=== PATIENT | female | born 1955 | race African-American/Black ===

== ENCOUNTER → 2018-08-03 10:48 | Outpatient (CLI) | payer OTHER, SELFPAY ==
--- NOTE | 2018-08-03 10:53 | DI.CT.S_ITS ---
PROCEDURE: CT CHEST WO CON INDICATIONS: pulmonary nodule TECHNIQUE: Noncontrast 5 mm thick sections acquired from the pulmonary apices to the posterior costophrenic angles. 7 mm thick coronal and sagittal MIP reformats were then acquired. For radiation dose reduction, the following was used: automated exposure control, adjustment of mA and/or kV according to patient size. COMPARISON: [place], [place], [place] PET CT FUSION SKULL 2 THIGH, 04/29/2018, 14:51. FINDINGS: Image quality: Excellent. Lungs and pleura: No acute consolidation. Redemonstration of 9 mm subpleural right upper lobe only nodule since the prior study dated 04/29/18. Scattered scarring/atelectasis. Large eventration of the left hemidiaphragm. No pleural effusions or pneumothorax. Central and peripheral airways are patent and normal in caliber. Mediastinum: Heart size is normal. No pericardial effusion. No mediastinal adenopathy by size criteria. Thoracic aorta and central pulmonary arteries are normal in size. Esophagus is normal in caliber. No hiatal hernia. Bones and chest wall: No suspicious bony lesions. No vertebral body compression fractures. No axillary or supraclavicular adenopathy by size criteria. Thyroid gland negative. Abdomen: Some 5 mm hypodensity seen in the abdomen the liver, image 40 series 3 which is indeterminate and too small to characterize IMPRESSION: Overall, stable examination with no interval change of the previously described right upper lobe pulmonary nodule. Recommend continued surveillance with repeat noncontrast chest CT in April of 2019 to exclude indolent neoplastic process. Dictated by: Elbert Andrews M.D. on 08/03/2018 at 11:45 Approved by: Elbert Andrews M.D. on 08/03/2018 at 11:50
== END ==
PROVIDERS: PCP Nurse Practitioner Family
DX: R91.1 Solitary pulmonary nodule (principal)
CPT/HCPCS: 71250

== ENCOUNTER → 2019-05-24 12:19 | Outpatient (CLI) | payer OTHER, SELFPAY ==
--- NOTE | 2019-05-24 12:21 | DI.CT.S_ITS ---
PROCEDURE: CT CHEST WO CON INDICATIONS: Lung nodule TECHNIQUE: Noncontrast 2.0-2.5 mm thick sections acquired from the pulmonary apices to the posterior costophrenic angles. 7 mm thick axial MIP and 5 mm coronal and sagittal reformats were then acquired. A low radiation dose technique was utilized. COMPARISON: [facility], [place], [place] PET CT FUSION SKULL 2 THIGH, 04/29/2018, 14:51. [facility], CT, CT CHEST WO CON, 08/03/2018, 10:33. FINDINGS: Image quality: Diagnostic, given the low radiation dose technique. Lungs and pleura: Nodule with irregular margins in the posterior-lateral right upper lobe slightly increased in size compared to prior examinations measuring 1.2 cm in maximum diameter the current study (0.9 cm previously). No new lung nodules are identified. Elevation of the left hemidiaphragm is unchanged. Mediastinum: Heart size is normal. No pericardial effusion. No mediastinal adenopathy by size criteria. Thoracic aorta and central pulmonary arteries are normal in size. Esophagus is normal in caliber. No hiatal hernia. Bones and chest wall: No suspicious bony lesions. No vertebral body compression fractures. Spine degenerative disc disease and facet arthropathy. No axillary or supraclavicular adenopathy by size criteria. Thyroid gland is normal where visualized. Abdomen: Small hypoattenuating lesion in the anterior-superior subsegment of the right lobe liver is not optimally visualized in current study but does not appear significantly changed. Visualized upper abdomen solid organs and bowel loops localize appear normal in the absence of contrast. IMPRESSION: 1.2 cm right upper lobe nodule slightly increased in size compared to prior examinations. Biopsy is recommended for definitive characterization if clinically indicated. Fleischner Society criteria for SOLID lung nodule followup. Nodule size (mm)Low-risk patientHigh-risk patient<6 (single or multiple)No routine followup.Optional CT at 12 months. 6-8 (single or multiple)CT at 6-12 months, then optional CT at 18-24 mo.CT at 6-12 months, then CT at 18-24 months. >8 (single)CT at 3 months, PET-CT, or biopsy. Same as for low-risk pts. >8 (multiple)CT at 3-6 months, then optional CT at 18-24 mo.CT at 3-6 months, then CT at 18-24 months. Fleischner Society criteria for SUB-SOLID lung nodule followup. Solitary pure ground-glass nodules<6 mm (ground glass or part solid)No followup needed. 6 mm or larger (ground glass)CT at 6-12 months to confirm persistence, then CT every 2 years until 5 years.6 mm or larger (part solid)CT at 3-6 months to confirm persistence, then annual CT until 5 years if unchanged and solid component remains <6 mm. Multiple sub-solid nodules<6 mmCT at 3-6 months, then CT consider at 2 & 4 years for high risk patients. [address] at 3-6 months. Subsequent management based on most suspicious lesions. Recommendations do not apply to lung cancer screening, patients with immunosuppression, or patients with known primary cancer. Dictated by: Nessa Marcus MD, PhD on 05/24/2019 at 14:18 Approved by: Nessa Marcus MD, PhD on 05/24/2019 at 14:30
== END ==
PROVIDERS: PCP Nurse Practitioner Family
DX: R91.1 Solitary pulmonary nodule (principal)
CPT/HCPCS: 71250

== ENCOUNTER → 2019-08-19 12:04 | Outpatient (CLI) | payer OTHER, SELFPAY ==
--- NOTE | 2019-08-19 12:57 | DI.CT.S_ITS ---
PROCEDURE: CT CHEST ABD PEL W CON INDICATIONS: f/u lung nodule in non-smoker TECHNIQUE: After the administration of oral and intravenous contrast, 5 mm thick sections acquired from the lung apices to the symphysis. 5 mm coronal and sagittal reformats were performed, with additional 7 mm coronal MIP reformats through the lungs. For radiation dose reduction, the following was used: automated exposure control, adjustment of mA and/or kV according to patient size. COMPARISON: [facility], CT, CT CHEST WO CON, 08/03/2018, 10:33. [facility], [place], [place] PET CT FUSION SKULL 2 THIGH, 04/29/2018, 14:51. [facility], CT, CT CHEST WO CON, 05/24/2019, 12:18. FINDINGS: Image quality: Excellent. CHEST: Lungs and pleura: No acute consolidation. 1.1 x 1.2 cm posterior right upper lobe nodules again noted, no discernible interval change since 05/24/19. However slight interval increase in size since more remote studies dated 08/03/18 (1.1 x 1.0 cm) No pleural effusions or pneumothorax. Central and peripheral airways appear patent and normal in caliber. Mediastinum: Heart size is normal. No pericardial effusion. No mediastinal or hilar adenopathy by size criteria. Thoracic aorta and central pulmonary arteries are normal in size. Esophagus is normal in caliber. No hiatal hernia. Chest wall: No axillary or supraclavicular adenopathy by size criteria. Thyroid gland unremarkable. ABDOMEN: Solid organs: Multiple subcentimeter hepatic hypodensities are seen, too small to characterize accurately. Gallbladder negative. Biliary system is non dilated. Pancreas enhances normally. Spleen is normal in size and enhancement. No adrenal nodules. Kidneys demonstrate normal size and enhancement, without hydronephrosis. Subcentimeter poorly defined renal focal entities, statistically cysts, however technically too small to characterize accurately. Peritoneum and bowel: Bowel loops demonstrate normal wall thickness and caliber. No free fluid or air. Colonic diverticulosis is seen without evidence of acute complication. Nodes and vessels: No retroperitoneal or mesenteric adenopathy by size criteria. Aorta and inferior vena cava are normal in size. Miscellaneous: No ventral hernias. PELVIS: Genitourinary: Bladder wall thickness is normal. Bilateral fat containing inguinal hernias. Bones: No suspicious bony lesions. No vertebral body compression fractures. IMPRESSION: Overall, stable examination since 05/24/19. Redemonstrated right upper lobe pulmonary nodule which appears unchanged since the most recent study although slightly increased in size since more remote examinations. Technically, indolent neoplasm still cannot be excluded. No specific evidence of metastatic disease Dictated by: Elbert Andrews M.D. on 08/19/2019 at 16:03 Approved by: Elbert Andrews M.D. on 08/19/2019 at 16:17
== END ==
PROVIDERS: PCP Nurse Practitioner Family; Referring Provider Internal Medicine; Visit Provider Internal Medicine
DX: R91.1 Solitary pulmonary nodule (principal); K40.20 Bilateral inguinal hernia, without obstruction or gangrene, not specified as recurrent
CPT/HCPCS: 71260; 74177; Q9967

== ENCOUNTER 2019-09-09 07:05 | Outpatient (CLI) | payer MEDICARE, OTHER, SELFPAY ==
--- NOTE | 2019-09-09 07:09 | DI.CT.S_ITS ---
PROCEDURE: CT BIOPSY LUNG RT . INDICATIONS: biopsy of slowly growing right lung lesion TECHNIQUE: The indications, alternatives, benefits, risks, and possible complications of the procedure were communicated to the patient. Informed written consent from the patient was obtained and placed in the chart. Continuous EKG and hemodynamic monitoring was started by trained personnel. The was brought to the CT suite and pipe threader spiral CT imaging was performed with localization grid. Despite repositioning a multiple times and with variation in breathing instructions including deep inspiration, shallow inspiration and expiration the 1.2 cm nodule in the right upper lobe could not be accessed from a posterior approach with 22 intervening right scapula and right ribs. Neither a lateral or anterior approach couldn't be performed due to the distance from the skin surface the lesion which is greater than the length of available biopsy needles. COMPARISON: [facility], [place], [place] PET CT FUSION SKULL 2 THIGH, 04/29/2018, 14:51. [facility], CT, CT CHEST ABD PEL W CON, 08/19/2019, 12:59. [facility], CT, CT CHEST WO CON, 05/24/2019, 12:18. [facility], CT, CT CHEST WO CON, 08/03/2018, 10:33. IMPRESSION: Unsuccessful attempt at CT-guided biopsy of right upper lobe nodule. Dictated by: Nessa Marcus MD, PhD on 09/09/2019 at 12:26 Approved by: Nessa Marcus MD, PhD on 09/09/2019 at 12:31
[2019-09-09 07:26] LABS: Add Manual Diff / Slide Review NO; Basophils Absolute Auto 0 /uL (0-100); Basophils Percent Auto 0.9 % (0-2); Eosinophils Absolute Auto 0 /uL (0-450); Eosinophils Percent Auto 0.2 % (2-4); Hematocrit 37.7 % (36-46); Lymphocytes Absolute Auto 1200 /uL (1100-4500); Lymphocytes Percent Auto 32.6 % (25-40); Mean Corpuscular HGB Conc 31.8 % (30-36); Mean Corpuscular Volume 94.3 fL (80-100); Monocytes Absolute Auto 500 /uL (0-900); Monocytes Percent Auto 13.5 % (3-14); Neutrophils Absolute Auto 2000 /uL (1500-7000); Neutrophils Percent Auto 52.8 % (50-75); Platelet Count 177 X10^3/uL (150-400); Red Blood Cell Count 3.99 X10^6/uL (4.0-5.2); Red Cell Distribution Width 12.7 % (11.6-14.8); White Blood Cell Count 3.8 X10^3/uL (4.5-11.0)
[2019-09-09 07:32] LABS: Prothrombin Time 11.9 SECONDS (10.1-12.7)
[2019-09-09 07:43] VITALS: BP 119/74; PULSE 84; RESP 18; TEMP 36.6; O2SAT 99; BMI 39.1
[2019-09-09 08:35] VITALS: PULSE 82; RESP 14; O2SAT 100
[2019-09-09 08:44] VITALS: BP 150/71; PULSE 90; RESP 16; O2SAT 100
--- NOTE | 2019-09-09 09:04 | PC.NURSE ---
Unable to access rt lung nodule site for biopsy. Procedure cancelled.
--- NOTE | 2019-09-09 09:18 | SUR.PHASEII ---
Pt back from DI. Pt dressed and left unit in stable condition.
== END 2019-09-09 09:10 | disposition home or self-care (01) ==
LOC: OR 07:07
PROVIDERS: PCP Nurse Practitioner Family; Referring Provider Internal Medicine; Visit Provider Internal Medicine
PROC: BB24ZZZ Computerized Tomography (CT Scan) of Bilateral Lungs (ICD-10-PCS; CPT 32408; principal; 2019-09-09 08:30)
DX: R91.1 Solitary pulmonary nodule (principal)
CPT/HCPCS: 36415; 71250; 85025; 85610

== ENCOUNTER → 2019-10-26 10:10 | Outpatient (CLI) | payer MEDICARE, OTHER, SELFPAY ==
[2019-10-27 09:52] LABS: COVID19 Sendout Not Detected (Not Detect)
== END ==
PROVIDERS: PCP Nurse Practitioner Family; Visit Provider Physician Assistant
DX: Z11.59 Encounter for screening for other viral diseases (principal)
CPT/HCPCS: 87635

== ENCOUNTER → 2019-10-29 13:24 | Outpatient (CLI) | payer MEDICARE, OTHER, SELFPAY ==
--- NOTE | 2019-11-03 10:22 | PM.PFT.1 ---
Pulmonary Function Test Referral & Results Date Patient Seen: 10/29/19 Requesting provider: Zeus Narvaez Indication: Lung nodule Results: The spirometry demonstrates an FVC of 1.74 L which is 57% of predicted. The FEV1 was measured at 1.50 L which is 64% of predicted. The FEV1/FVC ratio was 86 which is 112% of predicted. Following the administration of bronchodilator there was no appreciable change. Lung volumes show an SVC of 1.65 L which is 57% of predicted. The diffusing capacity was measured at 17.03 which is 74% of predicted. No hemoglobin value was provided, so no correction for potential anemia could be made, if appropriate. The maximum voluntary ventilation was reduced Interpretation: This study demonstrates mild/moderate obstructive lung disease based on reduction FEV1, without evidence of benefit following bronchodilator There is also terh-wj-eatvaais restrictive lung disease based on reduction in SVC There is also a reduction in diffusing capacity suggesting disease at the capillary alveolar level
== END ==
PROVIDERS: PCP Family Medicine; Referring Provider Family Medicine; Visit Provider Internal Medicine
DX: R91.1 Solitary pulmonary nodule (principal)
CPT/HCPCS: 94060; 94726; 94729

== ENCOUNTER → 2020-02-05 12:39 | Outpatient (CLI) | payer MEDICARE, OTHER, SELFPAY ==
--- NOTE | 2020-02-05 12:42 | DI.MG.S_ITS ---
BILATERAL DIGITAL SCREENING MAMMOGRAM 3D/2D WITH CAD: 02/05/2020 CLINICAL: Routine screening. Comparison is made to exams dated: 01/19/2019 mammogram, 02/10/2017 mammogram, and 02/18/2016 mammogram - [facility]. The tissue of both breasts is predominantly fatty. Current study was also evaluated with a Computer Aided Detection (CAD) system. No significant masses, calcifications, or other findings are seen in either breast. There has been no significant interval change. IMPRESSION: NEGATIVE There is no mammographic evidence of malignancy. A 1 year screening mammogram is recommended. This exam was interpreted at Station ID: [id number]. NOTE: For mammograms, a report in lay terms will be sent to the patient. Approximately 15% of breast malignancies will not be visualized mammographically. In the management of a palpable breast mass, a negative mammogram must not discourage biopsy of a clinically suspicious lesion. Electronically Signed By: Marlon Reich acr/oleg:02/06/2020 19:02:19 copy to: ADE PEÑA letter sent: Normal Exam ACR BI-RADS Category 1: Negative 3341F
== END ==
PROVIDERS: PCP Internal Medicine; Referring Provider Internal Medicine; Visit Provider Internal Medicine
DX: Z12.31 Encounter for screening mammogram for malignant neoplasm of breast (principal)
CPT/HCPCS: 77063; 77067

== ENCOUNTER → 2020-05-08 12:56 | Outpatient (CLI) | payer MEDICARE, OTHER, SELFPAY ==
[2020-05-08 13:39] LABS: BUN Creatinine Ratio 21.6 (6-22); Blood Urea Nitrogen 19 mg/dL (7-17); Estimated Glomerular Filt Rate > 60.0 mL/min (>60)
== END ==
PROVIDERS: PCP Internal Medicine; Referring Provider Radiology Radiation Oncology; Visit Provider Radiology Radiation Oncology
DX: C34.11 Malignant neoplasm of upper lobe, right bronchus or lung (principal)
CPT/HCPCS: 36415; 82565; 84520

== ENCOUNTER → 2020-05-11 11:12 | Outpatient (CLI) | payer MEDICARE, OTHER, SELFPAY ==
--- NOTE | 2020-05-11 11:41 | DI.CT.S_ITS ---
PROCEDURE: CT CHEST W CON INDICATIONS: 3 month follow up lung cancer TECHNIQUE: After the administration of intravenous contrast, 5 mm thick sections acquired from the pulmonary apices to the posterior costophrenic angles. 1 mm axial lung, 5 mm thick coronal and sagittal reformats and 7 mm axial MIP were acquired. For radiation dose reduction, the following was used: automated exposure control, adjustment of mA and/or kV according to patient size. COMPARISON: [facility], [place], PET NECK TO MID THIGH, 11/11/2019, 15:17. [facility], CT, CT CHEST WO CON, 05/24/2019, 12:18. FINDINGS: Image quality: Excellent. Lungs and pleura: No acute air space opacities. 10 mm diameter right upper lobe pulmonary nodule is not significantly changed in size, or appearance. Compressive atelectasis at the left lung base is unchanged. Left hemidiaphragm is elevated. No pleural effusions or pneumothorax. Central and peripheral airways are patent and normal in caliber. Mediastinum: Heart size is normal. No pericardial effusion. No mediastinal or hilar adenopathy by size criteria. Thoracic aorta and central pulmonary arteries are normal in size. Esophagus is normal in caliber. No hiatal hernia. Bones and chest wall: No suspicious bony lesions. No vertebral body compression fractures. No axillary or supraclavicular adenopathy by size criteria. Thyroid gland is within normal limits . Abdomen: Visualized upper abdominal solid organs appear normal. Upper abdominal bowel loops are normal in caliber. IMPRESSION: No change in right upper lobe pulmonary nodule. Dictated by: Candido Castrejon M.D. on 05/11/2020 at 13:32 Approved by: Candido Castrejon M.D. on 05/11/2020 at 13:34
== END ==
PROVIDERS: PCP Internal Medicine; Referring Provider Radiology Radiation Oncology; Visit Provider Radiology Radiation Oncology
DX: C34.11 Malignant neoplasm of upper lobe, right bronchus or lung (principal)
CPT/HCPCS: 71260

== ENCOUNTER → 2020-08-01 11:39 | Outpatient (CLI) | payer MEDICARE, OTHER, SELFPAY ==
--- NOTE | 2020-08-01 11:43 | DI.RAD.S_ITS ---
PROCEDURE: XR CHEST 2V INDICATIONS: S/P SBRT for lung cancer, has shortness of breath/wheezing TECHNIQUE: 2 views of the chest were acquired. COMPARISON: [facility], CT, CT CHEST W CON, 05/11/2020, 11:21. [facility], [place], XR CHEST 1 VIEW, 11/04/2019, 14:27. FINDINGS: Surgical changes and devices: None. Lungs and pleura: There is a density in the right mid to upper lung field which has a parent suggesting some atelectasis versus scarring related to treatment of a right upper lobe nodule. Lungs are clear. No pleural effusions or pneumothorax. Chronic elevation of the left hemidiaphragm with mediastinal shift to the right. No acute airspace consolidation noted. Mediastinum: Mediastinal contours are normal. Heart size is normal. Bones and chest wall: No suspicious bony abnormalities. Soft tissues appear unremarkable. IMPRESSION: 1. Findings in the right mid to upper lung field most likely represent changes secondary to treatment of a pulmonary nodule. 2. Chronic elevation of left hemidiaphragm. 3. No evidence pneumonia. Dictated by: Francisco J Eubanks M.D. on 08/01/2020 at 12:10 Approved by: Francisco J Eubanks M.D. on 08/01/2020 at 12:13
== END ==
PROVIDERS: PCP Family Medicine; Referring Provider Internal Medicine; Visit Provider Internal Medicine
DX: C34.91 Malignant neoplasm of unspecified part of right bronchus or lung (principal); R06.02 Shortness of breath
CPT/HCPCS: 71046

== ENCOUNTER → 2020-10-28 11:04 | Outpatient (CLI) | payer MEDICARE, OTHER, SELFPAY ==
--- NOTE | 2020-10-28 | DI.MRI.S_ITS ---
PROCEDURE: MR SHOULDER RT WO CON INDICATIONS: Pain in right shoulder TECHNIQUE: Noncontrast oblique coronal T2 fast spin echo with fat saturation, oblique sagittal T1 spin echo and T2 fast spin echo with fat saturation, axial T1 spin echo and T2 fast spin echo with fat saturation through the shoulder. COMPARISON: [facility], [place], XR SHOULDER 2+ VIEWS RIGHT, 10/12/2020, 10:57. [facility], CR, XR SHOULDER 2+ VIEWS RIGHT, 10/17/2020, 15:06. FINDINGS: Image quality: Excellent. Rotator cuff: There is full-thickness tear of the supraspinatus tendon. There infraspinatus and subscapularis tendinosis. Sagittal images demonstrate mild supraspinatus muscle atrophy. Bones and bursae: No bone marrow contusions or fractures. Moderate acromioclavicular and joint degeneration. The acromion demonstrates conventional anatomy, without an os acromiale. There is small subacromial-subdeltoid bursal fluid. Small glenohumeral joint effusion. Capsule and soft tissues: There is degenerative tear/fraying of the anterior superior labrum. The long head of the biceps tendon demonstrates normal location and morphology. The rotator interval appears irregular. The coracohumeral ligament is normal in thickness. IMPRESSION: 1. Full-thickness tear of the supraspinatus tendon. There is mild supraspinatus muscle atrophy. 2. Infraspinatus and subscapularis tendinosis. 3. Moderate acromioclavicular and glenohumeral joint degeneration. 4. Degenerative anterior superior labral tear/fraying. 5. Irregular rotator interval. 6. Small subacromial/subdeltoid bursal fluid, likely related to small glenohumeral joint effusion and supraspinatus tendon tear. Dictated by: Sophie Saldana M.D. on 10/30/2020 at 12:54 Approved by: Sophie Saldana M.D. on 10/30/2020 at 18:07
== END ==
PROVIDERS: PCP Family Medicine; Referring Provider Orthopaedic Surgery; Visit Provider Orthopaedic Surgery
DX: C34.11 Malignant neoplasm of upper lobe, right bronchus or lung (principal); M25.511 Pain in right shoulder; M75.121 Complete rotator cuff tear or rupture of right shoulder, not specified as traumatic; M19.011 Primary osteoarthritis, right shoulder; R91.1 Solitary pulmonary nodule; R06.02 Shortness of breath
CPT/HCPCS: 36415; 73221; 80053; 85025

== ENCOUNTER → 2020-10-30 10:26 | Outpatient (CLI) | payer MEDICARE, OTHER, SELFPAY ==
--- NOTE | 2020-10-30 10:27 | DI.CT.S_ITS ---
PROCEDURE: CT CHEST W CON INDICATIONS: Follow-up lung cancer after SBRT TECHNIQUE: After the administration of intravenous contrast, 5 mm thick sections acquired from the pulmonary apices to the posterior costophrenic angles. 1 mm axial lung, 5 mm thick coronal and sagittal reformats and 7 mm axial MIP were acquired. For radiation dose reduction, the following was used: automated exposure control, adjustment of mA and/or kV according to patient size. COMPARISON: [facility], CT, CT CHEST W CON, 05/11/2020, 11:21. [facility], CT, CT CHEST WO CON, 05/24/2019, 12:18. FINDINGS: Image quality: Excellent. Lungs and pleura: No acute air space opacities. There is chronic asymmetric elevation of the left hemidiaphragm. 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 No pleural effusions or pneumothorax. Central and peripheral airways are patent and normal in caliber. Mediastinum: Heart size is normal. No pericardial effusion. No mediastinal or hilar adenopathy by size criteria. Thoracic aorta and central pulmonary arteries are normal in size. Esophagus is normal in caliber. No hiatal hernia. Bones and chest wall: No suspicious bony lesions. No vertebral body compression fractures. No axillary or supraclavicular adenopathy by size criteria. Thyroid gland appears normal where well seen . Abdomen: Visualized upper abdominal solid organs appear normal. Upper abdominal bowel loops are normal in caliber. IMPRESSION: Presumed radiation change right upper lobe, with a band of fibrosis in the expected radiation port for treatment of the small lateral right upper lobe lung nodule previously present. That in nodule is no longer seen as a discrete entity. No mediastinal or hilar adenopathy is developed. No distant metastatic disease is found. Dictated by: Valeriy Zelaya M.D. on 10/30/2020 at 15:38 Approved by: Valeriy Zelaya M.D. on 10/30/2020 at 15:56
== END ==
PROVIDERS: PCP Family Medicine; Referring Provider Internal Medicine; Visit Provider Internal Medicine
DX: C34.91 Malignant neoplasm of unspecified part of right bronchus or lung (principal); R06.02 Shortness of breath
CPT/HCPCS: 71260; Q9967

== ENCOUNTER → 2021-03-29 11:40 | Outpatient (CLI) | payer MEDICARE, OTHER, SELFPAY ==
--- NOTE | 2021-03-29 | DI.MG.S_ITS ---
BILATERAL DIGITAL SCREENING MAMMOGRAM 3D/2D WITH CAD: 03/29/2021 CLINICAL: Routine screening. Comparison is made to exams dated: 02/05/2020 mammogram - [facility], 01/19/2019 mammogram, and 02/10/2017 mammogram - [facility]. The tissue of both breasts is predominantly fatty. Current study was also evaluated with a Computer Aided Detection (CAD) system. No significant masses, calcifications, or other findings are seen in either breast. There has been no significant interval change. IMPRESSION: NEGATIVE There is no mammographic evidence of malignancy. A 1 year screening mammogram is recommended. This exam was interpreted at Station ID: [id number]. NOTE: For mammograms, a report in lay terms will be sent to the patient. Approximately 15% of breast malignancies will not be visualized mammographically. In the management of a palpable breast mass, a negative mammogram must not discourage biopsy of a clinically suspicious lesion. Electronically Signed By: Marlon Reich acr/penrad:03/29/2021 12:02:03 copy to: ADE PEÑA letter sent: Normal Exam ACR BI-RADS Category 1: Negative [id number]
== END ==
PROVIDERS: PCP Family Medicine; Referring Provider Family Medicine; Visit Provider Family Medicine
DX: Z12.31 Encounter for screening mammogram for malignant neoplasm of breast (principal)
CPT/HCPCS: 77063; 77067

== ENCOUNTER → 2021-04-23 10:14 | Outpatient (CLI) | payer MEDICARE, OTHER, SELFPAY ==
--- NOTE | 2021-04-23 | DI.CT.S_ITS ---
PROCEDURE: CT CHEST WO CON INDICATIONS: Malignant neoplasm of upper lobe, right bronchus TECHNIQUE: Noncontrast 5 mm thick sections acquired from the pulmonary apices to the posterior costophrenic angles. 1 mm lung window, 5 mm thick coronal and sagittal and 7 mm axial MIP reformats were then acquired. For radiation dose reduction, the following was used: automated exposure control, adjustment of mA and/or kV according to patient size. COMPARISON: [facility], CT, CT CHEST W CON, 10/30/2020, 10:34. [facility], CT, CT CHEST WO CON, 05/24/2019, 12:18. FINDINGS: Image quality: Excellent. Lungs and pleura: No acute air space opacities. Redemonstrated streaky and platelike densities in the peripheral aspect of the right upper lobe, most consistent with a sequelae of radiation therapy. A 7.6 mm nodular density is seen (5-43), which may reflect the previously demonstrated neoplastic pulmonary nodule. No pleural effusions or pneumothorax. Persistent elevation of the left diaphragm with adjacent atelectasis. Central and peripheral airways are patent and normal in caliber. Mediastinum: Heart size is normal. No pericardial effusion. No mediastinal adenopathy by size criteria. Thoracic aorta and central pulmonary arteries are normal in size. Esophagus is normal in caliber. No hiatal hernia. Bones and chest wall: No suspicious bony lesions. No vertebral body compression fractures. No axillary or supraclavicular adenopathy by size criteria. Thyroid gland appears homogeneous. Abdomen: Visualized upper abdominal solid organs and bowel loops appear normal in the absence of contrast. 1 cm hypoattenuating lesion in the right hepatic lobe. IMPRESSION: 1. No significant interval change of the patient's right upper lobe scarring. Dictated by: Mark Rosas M.D. on 04/23/2021 at 12:03 Approved by: Mark Rosas M.D. on 04/23/2021 at 12:13
== END ==
PROVIDERS: PCP Family Medicine; Referring Provider Radiology Radiation Oncology; Visit Provider Radiology Radiation Oncology
DX: C34.11 Malignant neoplasm of upper lobe, right bronchus or lung (principal)
CPT/HCPCS: 71250

== ENCOUNTER → 2022-04-19 12:07 | Outpatient (CLI) | payer MEDICARE, OTHER, SELFPAY ==
--- NOTE | 2022-04-19 | DI.CT.S_ITS ---
PROCEDURE: CT CHEST WO CON INDICATIONS: malignant neoplasm of unspecified part of lung TECHNIQUE: Noncontrast 5 mm thick sections acquired from the pulmonary apices to the posterior costophrenic angles. 1 mm lung window, 5 mm thick coronal and sagittal and 7 mm axial MIP reformats were then acquired. For radiation dose reduction, the following was used: automated exposure control, adjustment of mA and/or kV according to patient size. Patient experienced IV contrast extravasation. Approximately 70 cc Isovue 300. I personally evaluated the patient prior to departure. The area is soft and nontender. No skin erythema appreciated. Normal range of motion and senior power scheduler. COMPARISON: [facility], [place], [place] PET CT FUSION SKULL 2 THIGH, 04/29/2018, 14:51. [facility], CT, CT CHEST W CON, 05/11/2020, 11:21. [facility], CT, CT CHEST W CON, 10/30/2020, 10:34. [facility], CT, CT CHEST WO CON, 04/23/2021, 10:56. FINDINGS: Image quality: Excellent. Lungs and pleura: Scarring in the right lung is unchanged. Nodular opacity within this region of scarring measuring 0.7 cm, (4/76), not significantly changed since at least October 2020. Small calcified granuloma. No pleural effusions or pneumothorax. Central and peripheral airways are patent and normal in caliber. Mediastinum: Heart size is normal. No pericardial effusion. No mediastinal adenopathy by size criteria. Asymmetric elevation of the right hemidiaphragm. Thoracic aorta and central pulmonary arteries are normal in size. Esophagus is normal in caliber. No hiatal hernia. Bones and chest wall: No suspicious bony lesions. No vertebral body compression fractures. No axillary or supraclavicular adenopathy by size criteria. Thyroid gland is unremarkable. Abdomen: Visualized upper abdominal solid organs and bowel loops appear normal in the absence of contrast. A few small hypodensities in the liver are unchanged. These have the appearance of benign cysts. IMPRESSION: 1. Scarring in the right upper lobe is unchanged. Nodular opacity within this region of scarring measuring 0.7 cm is unchanged since at least October 2020. 2. No enlarged lymph nodes identified. Dictated by: Eduar Manzanares M.D. on 04/19/2022 at 13:59 Approved by: Eduar Manzanares M.D. on 04/19/2022 at 14:13
[2022-04-19 12:38] LABS: Add Manual Diff / Slide Review NO; Basophils Absolute Auto 0 /uL (0-100); Basophils Percent Auto 0.7 % (0-2); Eosinophils Absolute Auto 0 /uL (0-450); Eosinophils Percent Auto 0.8 % (2-4); Hematocrit 34.8 % (36-46); Hemoglobin 11.3 g/dL (12.0-16.0); Lymphocytes Absolute Auto 900 /uL (1100-4500); Lymphocytes Percent Auto 25.7 % (25-40); Mean Corpuscular HGB Conc 32.4 % (30-36); Mean Corpuscular Volume 89.4 fL (80-100); Monocytes Absolute Auto 400 /uL (0-900); Neutrophils Absolute Auto 2000 /uL (1500-7000); Neutrophils Percent Auto 59.8 % (50-75); Platelet Count 146 X10^3/uL (150-400); Red Blood Cell Count 3.89 X10^6/uL (4.0-5.2); Red Cell Distribution Width 13.6 % (11.6-14.8); White Blood Cell Count 3.4 X10^3/uL (4.5-11.0)
[2022-04-19 12:49] LABS: Alanine Aminotransferase 18 IU/L (<35); Albumin 4.2 g/dL (3.5-5.0); Albumin Globulin Ratio 1.6 (1.0-2.8); Alkaline Phosphatase 65 U/L (38-126); Aspartate Aminotransferase 22 IU/L (14-36); BUN Creatinine Ratio 17.3 (6-22); Bilirubin Total 0.3 mg/dL (0.2-1.3); Blood Urea Nitrogen 13 mg/dL (7-17); Calcium 8.8 mg/dL (8.4-10.2); Carbon Dioxide 32 mmol/L (22-32); Chloride 101 mmol/L (98-107); Estimated Glomerular Filt Rate > 60 mL/min (>60); Globulin 2.7 g/dL (1.7-4.1); Glucose 109 mg/dL (80-110); HEMOLYSIS < 15 (0-50); Potassium 3.9 mmol/L (3.4-5.1); Sodium 141 mmol/L (137-145); Total Protein 6.9 g/dL (6.3-8.2)
== END ==
PROVIDERS: Internal Medicine Medical Oncology; PCP Family Medicine; Referring Provider Radiology Radiation Oncology; Visit Provider Radiology Radiation Oncology
DX: C34.91 Malignant neoplasm of unspecified part of right bronchus or lung (principal); R91.1 Solitary pulmonary nodule; J98.4 Other disorders of lung
CPT/HCPCS: 36415; 71250; 80053; 85025

== ENCOUNTER → 2022-12-21 10:40 | Outpatient (CLI) | payer MEDICARE, OTHER, SELFPAY ==
--- NOTE | 2022-12-21 10:42 | DI.MRI.S_ITS ---
PROCEDURE: MR KNEE RT WO CON INDICATIONS: DEGENERATIVE ARTHRITIS/TRAUMA KNEE PAIN TECHNIQUE: Noncontrast sagittal PD fast spin echo and T2 fast spin echo with fat saturation, sagittal 3-D FLASH with fat saturation; coronal T1 spin echo and PD fast spin echo with fat saturation, and axial PD fast spin echo with fat saturation through the knee. COMPARISON: [facility], CR, XR KNEE ARTHRITIC SERIES RT, 11/29/2022, 7:59. [facility], CR, XR KNEE 3 VIEWS RIGHT, 11/08/2022, 16:14. [facility], CR, XR KNEE 3 VIEWS RIGHT, 09/13/2022, 14:37. FINDINGS: Image quality: Excellent. Menisci: The medial and lateral menisci demonstrate normal morphology and internal signal. The meniscal root ligaments appear intact. Cruciate ligaments: The anterior and posterior cruciate ligaments appear intact. Medial structures: The medial collateral ligament appears intact. The semimembranosus tendon insertions and meniscocapsular junction appear intact. Visualized portions of the pes anserinus tendons appear normal. No abnormal bursal fluid. Lateral structures: The lateral collateral ligament and the biceps femoris tendon appear intact. The popliteus tendon appears normal. Iliotibial band appears normal. Anterior structures: The quadriceps and patellar tendons appear intact. Patellar alignment is normal. No femoral trochlear dysplasia or ventral trochlear prominence. No edema in the infrapatellar fat pad. Bones and cartilage: No bone marrow contusions or fractures. Chondral malacia patella. There is also [id number] cartilage thinning and fibrillation in the medial and lateral patellofemoral compartments. A full-thickness cartilage fissure is noted in the medial femoral condyle. Moderate arthritic changes of the proximal tibiofibular joint. Joint space: There is small knee joint effusion. There is a small Torres's cyst. Normal appearing synovial plicae are incidentally noted. IMPRESSION: 1. Chondromalacia patella. 2. [id number] cartilage thinning and fibrillation in the medial and lateral femorotibial compartments. 3. Moderate proximal tibiofibular joint degeneration. 4. Small knee joint effusion. 5. A small Torres's cyst. Dictated by: Sophie Saldana M.D. on 12/23/2022 at 8:45 Approved by: Sophie Saldana M.D. on 12/23/2022 at 9:01
== END ==
PROVIDERS: PCP Family Medicine; Referring Provider Internal Medicine Rheumatology; Visit Provider Internal Medicine Rheumatology
DX: S89.91XD Unspecified injury of right lower leg, subsequent encounter (principal); M22.41 Chondromalacia patellae, right knee; M25.461 Effusion, right knee; M71.21 Synovial cyst of popliteal space [Baker], right knee
CPT/HCPCS: 73721